=== PATIENT | female | born 1990 | race Caucasian/White ===

== ENCOUNTER 2018-05-14 10:09 | Emergency (ER) | END 2018-05-14 12:32 | disposition home or self-care (01) ==

== ENCOUNTER 2018-05-28 16:29 | Emergency (ER) | END 2018-05-28 21:09 | disposition home or self-care (01) ==

== ENCOUNTER 2018-06-03 14:30 | Observation (INO) | END 2018-06-04 17:50 | disposition home or self-care (01) ==